=== PATIENT | female | born 1980 ===

== ENCOUNTER 2024-07-08 09:52 | Outpatient (CLI) | payer OTHER | END 2024-07-08 09:53 | disposition home or self-care (01) | LOC: PRENATAL 09:52 | PROVIDERS: ATTEND Obstetrics & Gynecology Maternal & Fetal Medicine | DX: Z76.1 Encounter for health supervision and care of foundling (principal) ==

== ENCOUNTER → 2024-07-31 15:26 | Outpatient (CLI) | payer OTHER | END | disposition home or self-care (01) | LOC: PRENATAL 15:26 | PROVIDERS: ATTEND Obstetrics & Gynecology Maternal & Fetal Medicine | DX: O36.8199 Decreased fetal movements, unspecified trimester, other fetus (principal); O44.00 Complete placenta previa NOS or without hemorrhage, unspecified trimester; O24.419 Gestational diabetes mellitus in pregnancy, unspecified control; O40.1XX0 Polyhydramnios, first trimester, not applicable or unspecified; Z3A.37 37 weeks gestation of pregnancy ==

== ENCOUNTER → 2024-08-06 07:27 | Outpatient (CLI) | payer OTHER | END | disposition home or self-care (01) | LOC: PRENATAL 07:27 | PROVIDERS: ATTEND Obstetrics & Gynecology Maternal & Fetal Medicine | DX: Z76.1 Encounter for health supervision and care of foundling (principal) ==